=== PATIENT | male | born 1950 | race Caucasian/White ===

== ENCOUNTER → 2016-08-23 | Outpatient (CLI) | payer OTHER | LOC: BMCIMAGING 10:11 | PROVIDERS: ATTEND Internal Medicine | DX: M79.605 Pain in left leg (principal) ==

== ENCOUNTER 2017-04-26 10:01 | Emergency (ER) | payer OTHER ==
[2017-04-26 10:08] VITALS: TEMP 97.9
--- NOTE | 2017-04-26 10:18 | CPEKG ---
Heart Rate: 65 RR Interval: 923 P-R Interval: 200 QRSD Interval: 82 QT Interval: 416 QTC Interval: 433 P Center: 57 QRS Center: -22 T Wave Center: 39 EKG Severity - ABNORMAL ECG - EKG Impression: SINUS RHYTHM Electronically Signed By: Ceferino Santos 26-Apr-2017 10:38:15
[2017-04-26] MEDS ORDERED: NS 1,000 ML IV ONE (10:26)
[2017-04-26 10:33] LABS: % IMMATURE GRANULYOCYTES 0.2 % (0.0-1.1); ABSOLUTE IMMATURE GRANULOCYTES 0.01 10^3/uL (0.00-0.10); ADD DIFF? NO; ADD MORPH? NO; ADD SCAN? NO; ATYPICAL LYMPHOCYTE FLAG 0 (0-99); FRAGMENT RBC FLAG 0 (0-99); HEMATOCRIT 46.8 % (40.0-51.0); HEMOGLOBIN 16.3 g/dL (13.7-17.5); LEFT SHIFT FLG 0 (0-99); LIPEMIA HEMOLYSIS FLAG 90 (0-99); MEAN CELL HEMOGLOBIN 32.9 pg (27.9-34.1); MEAN CELL HEMOGLOBIN CONCENTR. 34.8 g/dL (32.4-36.7); MEAN CELL VOLUME 94.5 fL (81.5-99.8); PLATELET CLUMPS FLAG 0 (0-99); PLATELET COUNT 235 10^3/uL (150-400); RED BLOOD CELL COUNT 4.95 10^6/uL (4.40-6.38); RED CELL DISTRIBUTION WIDTH 12.1 % (11.5-15.2)
--- NOTE | 2017-04-26 10:35 | EDPHY ---
General - History Smoking Status: Never smoked Narrative: CHIEF COMPLAINT: Right flank pain HISTORY OF PRESENT ILLNESS: Patient complains of 2 days history of right-sided flank pain. Gradual onset. Constant duration. [id number] symptoms. Worse with twisting and movement of the arm. No worse with inspiration. No chest pain. No shortness of breath. No cough. No fall, trauma or injury. No changes in bowel movements or urination. Some epigastric discomfort recently, acute on chronic. Also has some worsening soft tissue back pain and occasional headache. No neck pain or stiffness. No history of venous thrombolic event. No recent travel, trauma or surgery. No extremity erythema edema or pain. No midline back pain. No other associated complaints or modifying factors. REVIEW OF SYSTEMS: Ten systems reviewed and are negative unless otherwise noted in the HPI PCP: Dr. Bárbara Pizano SPECIALISTS: None PAST MEDICAL HISTORY: Chronic back pain, paroxysmal A flutter PAST SURGICAL HISTORY: Right shoulder surgery, knee surgery, appendectomy SOCIAL HISTORY: Nonsmoker. Occasional alcohol. No drug use. 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 No crepitus, step-off or deformity. Painless range of motion all planes. Midline trachea. Respiratory: Lungs are clear to auscultation. No wheeze, rhonchi or crackles Cardiovascular: Regular rate and rhythm no murmur Gastrointestinal: Abdomen is soft and nondistended. No epigastric tenderness. No tympany. No rigidity. No guarding. Right CVA tenderness that is mild to moderate. Back: No midline tenderness. There is soft tissue tenderness of the lumbar musculature. No crepitus, step-off or deformity. Neurological: A&O, nonfocal, strength is symmetric in all 4 limbs. Skin: Warm and dry, no rash no petechiae or purpura Extremities: Nontender, no pedal edema. Symmetric range of motion Psychiatric: Mood and affect normal DIFFERENTIAL DIAGNOSES: Including but not limited to renal colic, nephrolithiasis, biliary colic, ureteral stone, musculoskeletal injury, PE, ACS MDM: 10:27 a.m. Right-sided flank pain that suggest renal colic versus gallbladder etiology by history examination. Low concern for cardiac involvement. No pleuritic pain. EKG unremarkable. Vital signs stable. Laboratory studies and chest x-ray were ordered. Urinalysis ordered. He is in no acute distress. He does not require any IV pain medication at this time. 11:00 a.m. Patient re-evaluated. Still resting comfortably. Still complains of a dull pain in the right flank. CBC is unremarkable. Chemistries unremarkable. Urinalysis is not yet obtained. 11:[address] Santos has evaluated the patient. CT scan of the abdomen pelvis without contrast has been ordered. 11:[address] scan as read by me, without the aid of the radiologist, does reveal stone in the right kidney as well as in the right ureter. Official interpretation pending. Patient is providing a urine sample at this time 12:05 p.m. Patient re-evaluated. I discussed the CT scan findings with the patient. He is feeling well at this time. Mild pain. Urinalysis is pending. We discussed discharge home with pain medication, nausea medication and follow up with Urology and primary care physician. I will await the urinalysis results prior to disposition. He is comfortable this plan. He is in no acute distress. 12:20 p.m. Urinalysis reveals only a few red blood cells. No evidence of infection. I have informed him of this. At this point he will be discharged home in stable condition. Follow up with primary care physician and Neurology. ED precautions discussed. (Luc Maxwell) INDEPENDENT PHYSICIAN DOCUMENTATION I evaluated and participated in the management of the patient. I also evaluated the patient independently. My co-signature indicates that I have reviewed this chart and I agree with the findings and plan of care as documented. My personal H&P findings include: The patient presents the ED with complaints of acute right flank pain which radiates to the right lower quadrant and began several hours prior to arrival. The patient had nausea without vomiting. The patient states his pain is worsened with movement. He is unable to find a position of comfort. Physical exam General Appearance: Alert, mild discomfort secondary to pain Eyes: Pupils equal and round no pallor or injection ENT, Mouth: Mucous membranes moist Respiratory: There are no retractions, lungs are clear to auscultation Cardiovascular: Regular rate and rhythm Gastrointestinal: Tenderness to palpation right lower quadrant, minimal right CVA tenderness Neurological: A&O, normal motor function, normal sensory exam, normal cranial nerves Skin: Warm and dry, no rashes Musculoskeletal: Neck is supple nontender Extremities: symmetrical, full range of motion ED course I did perform a bedside ultrasound on the patient which demonstrates no evidence of significant hydronephrosis. Given the diagnostic uncertainty of the patient's presentation today CT scan of the abdomen pelvis was ordered. CT scan demonstrates nephrolithiasis without ureterolithiasis. The patient's laboratory studies are reviewed. At this point time I feel the etiology of his pain is likely musculoskeletal. I do feel it is reasonable to have him do anti- inflammatories for the next day and return to the ED for recheck in 8-12 hours for any ongoing symptoms. The patient is comfortable with this plan and disposition. He will follow up with his primary care provider as needed. (Ceferino Santos) - Diagnostics EKG Interpretation: EKG: Complete interpretation has been separately recorded in the [employer] archive. Summary impression: Sinus rhythm, rate 65, no ischemic changes noted (Ceferino Santos) Imaging Results: Imaging Impressions Chest X-Ray 04/26/17 10:26 Impression: Nothing acute identified. Abdomen/Pelvis CT 04/26/17 11:10 Impression: 1. No source for right sided pain identified. If there is concern for noncalcified gallstone disease, then consider gallbladder sonogram. 2. Nonobstructive bilateral nephrolithiasis. Results called and discussed with Ceferino Santos, at 04/26/2017 11:56 Attention: This CT examination is specifically designed to evaluate patients who are clinically suspected of having acute obstructive uropathy. This examination does not use radiographic contrast, and as such, provides only a limited evaluation of the abdomen, pelvis and retroperitoneum. If there is further clinical suspicion for pathological conditions other than obstructive uropathy, a complete CT evaluation of the abdomen and pelvis utilizing intravenous, oral, and rectal contrast should be considered. General information for patients regarding this examination can be found at [email or web address]. If you have questions or comments about this report, please contact me at [phone] (hospital) or [phone] (cell). - Objective Vital Signs: Initial Vital Signs Temperature (C) 36.6 C 04/26/17 10:05 Heart Rate 73 04/26/17 10:05 Respiratory Rate 18 04/26/17 10:05 Blood Pressure 144/89 H 04/26/17 10:05 O2 Sat (%) 97 04/26/17 10:05 O2 Delivery Mode Room Air Allergies/Adverse Reactions: DOGS Allergy (Mild, Uncoded 04/26/17 10:04) STUFFY NOSE Home Medications: Medication Instructions Recorded LAMOTRIGINE 04/26/17 LORAZEPAM 04/26/17 Ondansetron Odt [Zofran Odt 4 mg 4 mg PO Q6 PRN #12 tab 04/26/17 (*)] oxyCODONE HCL/ACETAMINOPHEN 1 each PO Q4-6PRN PRN #19 tablet 04/26/17 [Percocet 5-325 mg Tablet] Laboratory Results: Laboratory Results 04/26/17 10:20 04/26/17 10:20 04/26/17 04/26/17 04/26/17 11:40 10:20 10:20 WBC RBC Hgb Hct MCV MCH MCHC RDW Plt Count MPV Neut % (Auto) Lymph % (Auto) [place] % (Auto) Eos % (Auto) Baso % (Auto) Nucleat RBC Rel Count Absolute Neuts (auto) Absolute Lymphs (auto) Absolute Monos (auto) Absolute Eos (auto) Absolute Basos (auto) Absolute Nucleated RBC Immature Gran % Immature Gran # PT 13.2 SEC SEC (12.0-15.0) INR 1.01 (0.83-1.16) APTT 30.9 SEC SEC (23.0-38.0) Sodium 145 mEq/L H mEq/L (134-144) Potassium 4.2 mEq/L mEq/L (3.5-5.2) Chloride 108 mEq/L mEq/L (97-110) Carbon Dioxide 23 mEq/l mEq/l (22-31) Anion Gap 14 mEq/L mEq/L (8-16) BUN 15 mg/dL mg/dL (7-23) Creatinine 1.0 mg/dL mg/dL (0.7-1.3) Estimated GFR > 60 Glucose 154 mg/dL H mg/dL (70-100) Calcium 9.1 mg/dL mg/dL (8.5-10.4) Total Bilirubin 0.6 mg/dL mg/dL (0.1-1.4) Conjugated Bilirubin 0.0 mg/dL mg/dL (0.0-0.5) Unconjugated Bilirubin 0.6 mg/dL mg/dL (0.0-1.1) AST 25 IU/L IU/L (17-59) ALT 41 IU/L IU/L (21-72) Alkaline Phosphatase 59 IU/L IU/L (38-126) Troponin I < 0.012 ng/mL ng/mL (0.000-0.034) Total Protein 6.7 g/dL g/dL (6.3-8.2) Albumin 4.4 g/dL g/dL (3.5-5.0) Lipase 66 IU/L IU/L (23-300) Urine Color YELLOW Urine Appearance CLEAR Urine pH 6.0 (5.0-7.5) Ur Specific [place] 1.023 (1.002-1.030) Urine Protein NEGATIVE (NEGATIVE) Urine Ketones NEGATIVE (NEGATIVE) Urine Blood NEGATIVE (NEGATIVE) Urine Nitrate NEGATIVE (NEGATIVE) Urine Bilirubin NEGATIVE (NEGATIVE) Urine Urobilinogen NEGATIVE EU EU (0.2-1.0) Ur Leukocyte Esterase NEGATIVE (NEGATIVE) Urine RBC 5-10 /hpf H /hpf (0-3) Urine WBC 1-3 /hpf /hpf (0-3) Ur Epithelial Cells NONE SEEN /lpf /lpf (NONE-1+) Urine Mucus TRACE /lpf /lpf (NONE-1+) Urine Glucose NEGATIVE (NEGATIVE) 04/26/17 10:20 WBC 5.11 10^3/uL 10^3/uL (3.80-9.50) RBC 4.95 10^6/uL 10^6/uL (4.40-6.38) Hgb 16.3 g/dL g/dL (13.7-17.5) Hct 46.8 % % (40.0-51.0) MCV 94.5 fL fL (81.5-99.8) MCH 32.9 pg pg (27.9-34.1) MCHC 34.8 g/dL g/dL (32.4-36.7) RDW 12.1 % % (11.5-15.2) Plt Count 235 10^3/uL 10^3/uL (150-400) MPV 10.0 fL fL (8.7-11.7) Neut % (Auto) 60.4 % % (39.3-74.2) Lymph % (Auto) 31.1 % % (15.0-45.0) Hinds % (Auto) 6.1 % % (4.5-13.0) Eos % (Auto) 1.0 % % (0.6-7.6) Baso % (Auto) 1.2 % % (0.3-1.7) Nucleat RBC Rel Count 0.0 % % (0.0-0.2) Absolute Neuts (auto) 3.09 10^3/uL 10^3/uL (1.70-6.50) Absolute Lymphs (auto) 1.59 10^3/uL 10^3/uL (1.00-3.00) Absolute Monos (auto) 0.31 10^3/uL 10^3/uL (0.30-0.80) Absolute Eos (auto) 0.05 10^3/uL 10^3/uL (0.03-0.40) Absolute Basos (auto) 0.06 10^3/uL 10^3/uL (0.02-0.10) Absolute Nucleated RBC 0.00 10^3/uL 10^3/uL (0-0.01) Immature Gran % 0.2 % % (0.0-1.1) Immature Gran # 0.01 10^3/uL 10^3/uL (0.00-0.10) PT INR APTT Sodium Potassium Chloride Carbon Dioxide Anion Gap BUN Creatinine Estimated GFR Glucose Calcium Total Bilirubin Conjugated Bilirubin Unconjugated Bilirubin AST ALT Alkaline Phosphatase Troponin I Total Protein Albumin Lipase Urine Color Urine Appearance Urine pH Ur Specific [place] Urine Protein Urine Ketones Urine Blood Urine Nitrate Urine Bilirubin Urine Urobilinogen Ur Leukocyte Esterase Urine RBC Urine WBC Ur Epithelial Cells Urine Mucus Urine Glucose Medications Given: Discontinued Medications Sodium Chloride (Ns) 1,000 mls @ 0 mls/hr IV EDNOW ONE; Wide Open PRN Reason: Protocol Stop: 04/26/17 10:27 Last Admin: 04/26/17 10:43 Dose: 1,000 mls Ketorolac Tromethamine (Toradol) 30 mg IVP EDNOW ONE Stop: 04/26/17 12:06 Last Admin: 04/26/17 12:13 Dose: 30 mg Departure - Departure Disposition: Home, Routine, Self-Care Clinical Impression: Right nephrolithiasis, Right flank pain Condition: Good Instructions: Kidney Stones (ED), Renal Colic (ED), How to Strain Your Urine ( ED), Musculoskeletal Pain (ED) Additional Instructions: 1. Medications as prescribed as needed 2. Increase fluid intake 3. Contact primary care physician Friday for follow-up 4. Contact the on-call urologist on Friday for outpatient follow-up. Information provided. 5. ED precautions discussed Referrals: Bárbara Pizano MD [Primary Care Provider] - As per Instructions Bassam Diaz MD [Medical Doctor] - As per Instructions Prescriptions: Ondansetron Odt [Zofran Odt 4 mg (*)] 4 mg PO Q6 PRN #12 tab PRN Reason: Nausea/Vomiting, Use 1st oxyCODONE HCL/ACETAMINOPHEN [Percocet 5-325 mg Tablet] 1 each PO Q4-6PRN PRN # 19 tablet PRN Reason: Pain, Breakthrough
[2017-04-26 10:47] LABS: ALANINE AMINOTRANSFERASE 41 IU/L (21-72); ALBUMIN 4.4 g/dL (3.5-5.0); ALKALINE PHOSPHATASE 59 IU/L (38-126); ANION GAP 14 mEq/L (8-16); ASPARTATE AMINOTRANSFERASE 25 IU/L (17-59); BILIRUBIN,TOTAL 0.6 mg/dL (0.1-1.4); BILIRUBIN-UNCONJUGATED 0.6 mg/dL (0.0-1.1); CALCIUM 9.1 mg/dL (8.5-10.4); CARBON DIOXIDE 23 mEq/l (22-31); CHLORIDE 108 mEq/L (97-110); GLOMERULAR FILTRATION RATE > 60; GLUCOSE 154 mg/dL (70-100); POTASSIUM 4.2 mEq/L (3.5-5.2); SODIUM 145 mEq/L (134-144); TOTAL PROTEIN 6.7 g/dL (6.3-8.2)
[2017-04-26 10:48] LABS: INR 1.01 (0.83-1.16); PROTIME(PATIENT) 13.2 SEC (12.0-15.0)
[2017-04-26 10:49] LABS: APTT 30.9 SEC (23.0-38.0)
[2017-04-26 10:59] LABS: TROPONIN I < 0.012 ng/mL (0.000-0.034)
[2017-04-26 11:59] VITALS: BP 146/86; PULSE 59; RESP 16; O2SAT 94
[2017-04-26 12:01] LABS: COLOR YELLOW; LEUKOCYTE ESTERASE,URINE NEGATIVE (NEGATIVE); NITRITE,URINE NEGATIVE (NEGATIVE)
[2017-04-26] MEDS ORDERED: KETOROLAC 30 MG/1 ML SDV IVP ONE (12:05)
[2017-04-26 12:15] LABS: MUCUS TRACE /lpf (NONE-1+)
== END 2017-04-26 12:28 | disposition home or self-care (01) ==
DX: N20.0 Calculus of kidney (principal); E86.9 Volume depletion, unspecified
CPT/HCPCS: 96374; J1885

== ENCOUNTER 2018-04-13 18:41 | Emergency (ER) | payer OTHER ==
[2018-04-13] MEDS ORDERED: NS 1,000 ML IV ONE (19:08)
--- NOTE | 2018-04-13 19:11 | EDPHY ---
HPI/HX/ROS/PE/MDM Narrative: CHIEF COMPLAINT: Palpitations HPI: The patient is a 67-year-old male with no known cardiac history. He complains of approximately 2-3 weeks of intermittent palpitations which she describes as a fast irregular beating. In between episodes, he denies any chest pain or shortness of breath. He presents tonight because these episodes have been increasing in frequency and severity and a particularly bad tonight. The patient saw a PA at [facility] within the last week who was unable to find any rhythm problem but scheduled this patient for a stress test. He denies any current chest pain or shortness of breath. REVIEW OF SYSTEMS: Aside from elements discussed in the HPI, a comprehensive 10-point review of systems was reviewed and is negative. PMH: History of previous irregular heart beats with a negative workup. No history of coronary artery disease. SOCIAL HISTORY: Denies alcohol or drug abuse. PHYSICAL EXAM: General:Patient is alert, in no acute distress. ENT:Eyes are normal to inspection. ENT inspection normal. Neck: Normal inspection. Full range of motion. Respiratory:No respiratory distress. Breath sounds normal bilaterally. Cardiovascular: Regular rate and rhythm. Strong peripheral pulses. Normal cap refill. Abdomen:The abdomen is nontender to palpation. There are no peritoneal signs. There are normal bowel sounds. Back: Normal to inspection. No tenderness to palpation. Skin: Normal color. No rash. Warm and dry. Extremities: Normal appearance. Full range of motion. Neuro: Oriented x3. Normal motor function. Normal sensory function. ED Course: EKG on arrival to the ER shows normal sinus rhythm without ST elevation or interval abnormalities. MDM: This patient was kept on surveillance monitor during his entire ER stay. Review of monitor strip indicates multiple episodes of single atrial premature contraction. There is no evidence of ventricular tachycardia, atrial fibrillation, ventricular premature contractions a, missed beats or other arrhythmia. I showed these tracings to the patient and explained our findings. I explained that if the patient was having a different rhythm prior to his arrival, we would be have no way to investigate that. His labs are normal and there is no sign of acute coronary syndrome or pulmonary embolus. I think he is safe for further outpatient workup and likely Holter monitor. - Data Points Laboratory Results: Laboratory Results 04/13/18 19:11 04/13/18 19:11 04/13/18 04/13/18 04/13/18 19:16 19:11 19:11 WBC 8.53 10^3/uL 10^3/uL (3.80-9.50) RBC 5.11 10^6/uL 10^6/uL (4.40-6.38) Hgb 16.3 g/dL g/dL (13.7-17.5) Hct 48.1 % % (40.0-51.0) MCV 94.1 fL fL (81.5-99.8) MCH 31.9 pg pg (27.9-34.1) MCHC 33.9 g/dL g/dL (32.4-36.7) RDW 12.0 % % (11.5-15.2) Plt Count 272 10^3/uL 10^3/uL (150-400) MPV 9.9 fL fL (8.7-11.7) Neut % (Auto) 64.2 % % (39.3-74.2) Lymph % (Auto) 27.5 % % (15.0-45.0) [place] % (Auto) 6.2 % % (4.5-13.0) Eos % (Auto) 1.2 % % (0.6-7.6) Baso % (Auto) 0.7 % % (0.3-1.7) Nucleat RBC Rel Count 0.0 % % (0.0-0.2) Absolute Neuts (auto) 5.47 10^3/uL 10^3/uL (1.70-6.50) Absolute Lymphs (auto) 2.35 10^3/uL 10^3/uL (1.00-3.00) Absolute Monos (auto) 0.53 10^3/uL 10^3/uL (0.30-0.80) Absolute Eos (auto) 0.10 10^3/uL 10^3/uL (0.03-0.40) Absolute Basos (auto) 0.06 10^3/uL 10^3/uL (0.02-0.10) Absolute Nucleated RBC 0.00 10^3/uL 10^3/uL (0-0.01) Immature Gran % 0.2 % % (0.0-1.1) Immature Gran # 0.02 10^3/uL 10^3/uL (0.00-0.10) Sodium 141 mEq/L mEq/L (135-145) Potassium 4.2 mEq/L mEq/L (3.3-5.0) Chloride 104 mEq/L mEq/L (97-110) Carbon Dioxide 25 mEq/l mEq/l (22-31) Anion Gap 12 mEq/L mEq/L (6-14) BUN 18 mg/dL mg/dL (7-23) Creatinine 1.0 mg/dL mg/dL (0.7-1.3) Estimated GFR > 60 Glucose 102 mg/dL H mg/dL (70-100) Calcium 9.8 mg/dL mg/dL (8.5-10.4) POC Troponin I 0.00 ng/mL ng/mL (0.00-0.08) Medications Given: Discontinued Medications Sodium Chloride (Ns) 1,000 mls @ 0 mls/hr IV EDNOW ONE; Wide Open PRN Reason: Protocol Stop: 04/13/18 19:09 Last Admin: 04/13/18 19:41 Dose: 1,000 mls Point of Care Test Results: Chemistry 04/13/18 19:16 POC Troponin I 0.00 ng/mL ng/mL (0.00-0.08) General Time Seen by Provider: 04/13/18 18:53 Initial Vital Signs: Initial Vital Signs Temperature (C) 37.1 C 04/13/18 18:44 Heart Rate 69 04/13/18 18:44 Respiratory Rate 17 04/13/18 18:44 Blood Pressure 150/108 H 04/13/18 18:44 O2 Sat (%) 96 04/13/18 18:44 O2 Delivery Mode Room Air Allergies/Adverse Reactions: DOGS Allergy (Mild, Uncoded 04/13/18 18:43) STUFFY NOSE Home Medications: Medication Instructions Recorded LAMOTRIGINE 04/26/17 LORAZEPAM 04/26/17 Departure - Departure Disposition: Home, Routine, Self-Care Clinical Impression: Palpitations, Atrial premature contractions Condition: Good Instructions: Premature Atrial Contractions (ED) Additional Instructions: Follow-up with your graphic designer within the next week for re-evaluation. Return to the emergency department for chest pain, shortness of breath, passing out, consistent abnormal heartbeats. Referrals: Bárbara Pizano MD [Primary Care Provider] - As per Instructions
[2018-04-13 19:24] LABS: PLATELET COUNT 272 10^3/uL (150-400)
[2018-04-13 20:25] VITALS: BP 160/95
--- NOTE | 2018-04-13 21:27 | CPEKG ---
Test Reason : OPEN Blood Pressure : / mmHG Vent. Rate : 065 BPM Atrial Rate : 064 BPM P-R Int : 203 ms QRS Dur : 086 ms QT Int : 408 ms P-R-T Axes : 030 -27 043 degrees QTc Int : 425 ms Sinus rhythm Left ventricular hypertrophy Confirmed by Chandrakant Baker ([id number]) on 04/13/2018 9:26:51 PM Referred By: Confirmed By:Chandrakant Baker
== END 2018-04-13 20:39 | disposition home or self-care (01) ==
DX: I49.1 Atrial premature depolarization (principal); E86.9 Volume depletion, unspecified
CPT/HCPCS: 84484-PO

== ENCOUNTER 2018-04-23 11:10 | Emergency (ER) | payer OTHER ==
[2018-04-23 11:53] LABS: PLATELET COUNT 285 10^3/uL (150-400)
[2018-04-23] MEDS ORDERED: IBUPROFEN 600 MG TAB PO ONE (13:14)
[2018-04-23] MEDS ORDERED: LIDOCAINE 1% 100 MG in NS 100 ML IV ONE (13:14)
--- NOTE | 2018-04-23 13:20 | EDPHY ---
H & P Time Seen by Provider: 04/23/18 11:55 HPI/ROS: CHIEF COMPLAINT: Right-sided pain in the flank HISTORY OF PRESENT ILLNESS: History of kidney stones, developed symptoms 3 hr prior to arrival. Right flank and radiates to his right testicle. Associated with some anterior lower abdominal pain. He has had some anterior lower abdominal pain for about the 5-6 days previously, no vomiting or diarrhea. No urinary symptoms. He has a little bit of urinary hesitancy always but no change. Symptoms moderate to severe, better after he took an OxyContin that he had at home from previous back pain. REVIEW OF SYSTEMS: Eye: no change in vision ENT: no sore throat Cardiac: no chest pain or syncope Pulmonary: no cough or SOB Abdomen: HPI Musculoskeletal: HPI Skin: no rash Neuro: no headache Constitutional: no fever : HPI A comprehensive 10 point review of systems is otherwise negative aside from elements mentioned in the history of present illness. PAST MEDICAL HISTORY: Previous dysrhythmia, kidney stone Social history: Nonsmoker General Appearance: Alert and conversant, cooperative. Eyes: No scleral icterus. ENT, Mouth: Normal mucous membranes. Respiratory: Normal respiratory effort, breath sounds equal, lungs are clear to auscultation. Cardiovascular: Regular rate and rhythm. Gastrointestinal: Abdomen is soft and non tender. No pulsatile mass. Normal male . Neurological: Alert, face symmetric, normal motor and sensory in extremities. Skin: Warm and dry, no rashes. Musculoskeletal: No peripheral edema. Psychiatric: Not agitated. Emergency Department course/MDM: 1315: Results discussed with the patient, feels better after 6 mg IV morphine. Lidocaine 100 and ibuprofen 600, will wait to see if he has adequate pain control. Does not have severe nausea and vomiting, has normal balance at baseline, Flomax discussed and consented. CT results reviewed with the patient personally on the computer screen. His rectal exam is Hemoccult negative, more likely to be due to the Pepto-Bismol and not an acute ulcer or upper GI bleed. 1507: re examined. Patient is comfortable, says he almost is pain-free now. He wants to go home which I think is reasonable. He is warned he may have recurrent pain while at home. Urology referral. Smoking Status: Never smoked Constitutional: Initial Vital Signs Temperature (C) 36.5 C 04/23/18 11:17 Heart Rate 54 L 04/23/18 11:17 Respiratory Rate 18 04/23/18 11:17 Blood Pressure 168/91 H 04/23/18 11:17 O2 Sat (%) 97 04/23/18 11:17 O2 Delivery Mode Room Air Allergies/Adverse Reactions: DOGS Allergy (Mild, Uncoded 04/13/18 18:43) STUFFY NOSE Home Medications: Medication Instructions Recorded LAMOTRIGINE 04/26/17 LORAZEPAM 04/26/17 Tamsulosin HCl [Flomax] 0.4 mg PO DAILY8 #10 cap 04/23/18 oxyCODONE/APAP 5/325 [Percocet] 1 tab PO Q4-6PRN PRN #11 tab 04/23/18 Medical Decision Making - Diagnostics Imaging Results: Imaging Impressions Abdomen/Pelvis CT 04/23/18 12:12 Impression: 5 mm calculus in the mid right ureter with mild to moderate hydronephrosis and hydroureter. Results called and discussed with Dr. Tino Boone on 04/23/2018, 13:01. Attention: This CT examination is specifically designed to evaluate patients who are clinically suspected of having acute obstructive uropathy. This examination does not use radiographic contrast, and as such, provides only a limited evaluation of the abdomen, pelvis and retroperitoneum. If there is further clinical suspicion for pathological conditions other than obstructive uropathy, a complete CT evaluation of the abdomen and pelvis utilizing intravenous, oral, and rectal contrast should be considered. Imaging: Discussed imaging studies w/ call worker Radiologist, I viewed and interpreted images myself Differential Diagnosis: Differential considered including but not limited to renal colic, UTI, abdominal aortic aneurysm, appendicitis, gallbladder disease. - Data Points Laboratory Results: Laboratory Results 04/23/18 11:35 04/23/18 04/23/18 04/23/18 12:20 12:13 11:46 WBC RBC Hgb POC Hgb 16.7 gm/dL gm/dL (13.7-17.5) Hct POC Hct 49 % % (40-51) MCV MCH MCHC RDW Plt Count MPV Neut % (Auto) Lymph % (Auto) [place] % (Auto) Eos % (Auto) Baso % (Auto) Nucleat RBC Rel Count Absolute Neuts (auto) Absolute Lymphs (auto) Absolute Monos (auto) Absolute Eos (auto) Absolute Basos (auto) Absolute Nucleated RBC Immature Gran % Immature Gran # POC Sodium 143 mEq/L mEq/L (135-145) POC Potassium 4.1 mEq/L mEq/L (3.3-5.0) POC Chloride 106 mEq/L mEq/L (97-110) POC BUN 17 mg/dL mg/dL (7-23) POC Creatinine 1.1 mg/dL mg/dL (0.7-1.3) POC Glucose 101 mg/dL H mg/dL (70-100) Urine Color YELLOW Urine Appearance CLEAR Urine pH 5.0 (5.0-7.5) Ur Specific [place] 1.019 (1.002-1.030) Urine Protein NEGATIVE (NEGATIVE) Urine Ketones NEGATIVE (NEGATIVE) Urine Blood 2+ H (NEGATIVE) Urine Nitrate NEGATIVE (NEGATIVE) Urine Bilirubin NEGATIVE (NEGATIVE) Urine Urobilinogen NEGATIVE EU EU (0.2-1.0) Ur Leukocyte Esterase NEGATIVE (NEGATIVE) Urine RBC 25-50 /hpf H /hpf (0-3) Urine WBC 3-5 /hpf H /hpf (0-3) Ur Epithelial Cells NONE SEEN /lpf /lpf (NONE-1+) Urine Mucus TRACE /lpf /lpf (NONE-1+) Urine Glucose NEGATIVE (NEGATIVE) Stool Occult Bld Scrn NEGATIVE (NEGATIVE) 04/23/18 11:35 WBC 10.04 10^3/uL H 10^3/uL (3.80-9.50) RBC 5.11 10^6/uL 10^6/uL (4.40-6.38) Hgb 16.2 g/dL g/dL (13.7-17.5) POC Hgb Hct 48.5 % % (40.0-51.0) POC Hct MCV 94.9 fL fL (81.5-99.8) MCH 31.7 pg pg (27.9-34.1) MCHC 33.4 g/dL g/dL (32.4-36.7) RDW 12.1 % % (11.5-15.2) Plt Count 285 10^3/uL 10^3/uL (150-400) MPV 9.9 fL fL (8.7-11.7) Neut % (Auto) 68.2 % % (39.3-74.2) Lymph % (Auto) 24.8 % % (15.0-45.0) [place] % (Auto) 5.5 % % (4.5-13.0) Eos % (Auto) 0.4 % L % (0.6-7.6) Baso % (Auto) 0.8 % % (0.3-1.7) Nucleat RBC Rel Count 0.0 % % (0.0-0.2) Absolute Neuts (auto) 6.85 10^3/uL H 10^3/uL (1.70-6.50) Absolute Lymphs (auto) 2.49 10^3/uL 10^3/uL (1.00-3.00) Absolute Monos (auto) 0.55 10^3/uL 10^3/uL (0.30-0.80) Absolute Eos (auto) 0.04 10^3/uL 10^3/uL (0.03-0.40) Absolute Basos (auto) 0.08 10^3/uL 10^3/uL (0.02-0.10) Absolute Nucleated RBC 0.00 10^3/uL 10^3/uL (0-0.01) Immature Gran % 0.3 % % (0.0-1.1) Immature Gran # 0.03 10^3/uL 10^3/uL (0.00-0.10) POC Sodium POC Potassium POC Chloride POC BUN POC Creatinine POC Glucose Urine Color Urine Appearance Urine pH Ur Specific [place] Urine Protein Urine Ketones Urine Blood Urine Nitrate Urine Bilirubin Urine Urobilinogen Ur Leukocyte Esterase Urine RBC Urine WBC Ur Epithelial Cells Urine Mucus Urine Glucose Stool Occult Bld Scrn Medications Given: Discontinued Medications Lidocaine HCl 100 mg/ Sodium (Chloride) 110 mls @ 600 mls/hr IV EDNOW ONE Stop: 04/23/18 13:24 Last Admin: 04/23/18 13:21 Dose: 110 mls Ibuprofen (Motrin) 600 mg PO EDNOW ONE Stop: 04/23/18 13:15 Last Admin: 04/23/18 13:21 Dose: 600 mg Morphine Sulfate (Morphine) 6 mg IVP EDNOW ONE Stop: 04/23/18 12:30 Last Admin: 04/23/18 12:33 Dose: 6 mg Point of Care Test Results: Chemistry 04/23/18 11:46 POC Sodium 143 mEq/L mEq/L (135-145) POC Potassium 4.1 mEq/L mEq/L (3.3-5.0) POC Chloride 106 mEq/L mEq/L (97-110) POC BUN 17 mg/dL mg/dL (7-23) POC Creatinine 1.1 mg/dL mg/dL (0.7-1.3) POC Glucose 101 mg/dL H mg/dL (70-100) ISTAT H&H 04/23/18 11:46 POC Hgb 16.7 gm/dL gm/dL (13.7-17.5) POC Hct 49 % % (40-51) Departure - Departure Disposition: Home, Routine, Self-Care Clinical Impression: Renal colic on right side Condition: Good Instructions: Renal Colic (ED) Additional Instructions: Please follow-up with [facility] next week. Drink plenty of fluids. Referrals: Bárbara Pizano MD [Primary Care Provider] - As per Instructions Rkeha Merino MD [Medical Doctor] - As per Instructions (next week in the office) Prescriptions: oxyCODONE/APAP 5/325 [Percocet] 1 tab PO Q4-6PRN PRN #11 tab PRN Reason: Pain Tamsulosin HCl [Flomax] 0.4 mg PO DAILY8 #10 cap
[2018-04-23 15:28] VITALS: BP 129/85
== END 2018-04-23 15:28 | disposition home or self-care (01) ==
DX: N23 Unspecified renal colic (principal); N20.1 Calculus of ureter; N13.30 Unspecified hydronephrosis
CPT/HCPCS: 82435-PO; 82565-PO; 82947-PO; 84132-PO; 84295-PO; 84520-PO; 85014-PO; 96365; J2270

== ENCOUNTER → 2018-05-07 | Outpatient (CLI) | payer OTHER | LOC: FIMAGING 07:52 | PROVIDERS: ATTEND Urology | DX: N20.1 Calculus of ureter (principal) | CPT/HCPCS: 82365-90 ==

== ENCOUNTER → 2018-06-24 | Outpatient (CLI) | payer OTHER | LOC: FIMAGING 14:10 | PROVIDERS: ATTEND Urology | DX: Z09 Encounter for follow-up examination after completed treatment for conditions other than malignant neoplasm (principal); Z96.0 Presence of urogenital implants ==

== ENCOUNTER 2018-06-27 22:26 | Emergency (ER) | payer OTHER ==
[2018-06-27] MEDS ORDERED: LIDOCAINE 4%/MENTHOL 1% PATCH TD ONE (22:49)
[2018-06-27] MEDS ORDERED: KETOROLAC 15 MG/1 ML SDV IVP ONE (23:05)
--- NOTE | 2018-06-27 23:09 | EDPHY ---
General Time Seen by Provider: 06/27/18 22:30 Narrative: CLINICAL IMPRESSION: Acute on chronic lumbar back pain with radiculopathy ASSESSMENT/PLAN: Patient is a 67-year-old male with a history of PVCs, chronic lumbar back pain with radiculopathy and kidney stones who presents with a complaint of low back pain after a long day of skiing yesterday. Patient is afebrile, he is uncomfortable appearing however not toxic-appearing. HSNE intact with no significant red flags. Urinalysis revealed no evidence of infection or blood. Patient's ultrasound from several days prior was reviewed, no evidence of stone or hydronephrosis. Physical examination today is consistent acute exacerbation of chronic lumbar back pain with radiculopathy. He had no saddle paresthesias, lower extremity numbness, tingling, major motor weakness, urinary retention or bowel/bladder incontinence. No indication for emergent MRI. There were no clinical findings to suggest vertebral osteomyelitis, acute fracture, cauda equina syndrome, epidural abscess/hematoma, epidural compression syndrome, renal colic, AAA, dissection, pyelonephritis, meningitis, malignancy, transverse myelitis, herpes zoster, or additional emergent intraabdominal infectious/obstructive process. Patient was given fentanyl by EMS prior to arrival, additionally he was given Toradol and a lidoderm patch was placed while in the ED with improvement of his pain. On repeat examination prior to discharge the patient was able to ambulate independently and without difficulty, his neurological exam remained grossly normal with no focal deficit. Patient is well established with his primary care provider and will call to schedule a follow-up appointment for repeat examination next week. He understands that he may need additional imaging and even possible physical therapy. Strict return precautions discussed - he will return for increased or unmanageable pain, new injury, new midline back pain, numbness, tingling, weakness of legs, loss of bowel or bladder control, saddle paresthesia, urinary retention, loss of bowel or bladder control , difficulty walking or for any other new, worsening or worrisome symptoms. Patient verbalizes understanding and she is in agreement with plan. DIFFERENTIAL DX: Back pain including but not limited to muscular pain, herniated disc, spine fracture, intra-abdominal causes and urinary tract infection. ED COURSE: 2300: Case discussed with Dr. Meng CHIEF COMPLAINT: Lumbar back pain with radiation into right leg HPI: Patient is a 67-year-old male with a significant history of sciatica and recent kidney stones who presents to the emergency department with right lumbar back pain with radiation into his right leg. Patient reports he was skiing yesterday , felt stiff after he skied. Woke up this morning with feeling even more stiff in his lower back. Patient bent over and had a sudden onset of sharp midline pain with radiation down his right leg. Patient took Aleve, on oxycodone and waited several hours. He took an additional oxycodone and ultimately called 911 secondary to the amount of pain that he was having. Patient does report similar episodes in the past, has required physical therapy for lumbar back pain. He denies any recent spinal procedures, fever, chest pain, shortness of breath, flank pain or urinary symptoms to include hematuria, dysuria or frequency. Patient denies saddle paresthesias, lower extremity numbness, tingling, major motor weakness, urinary retention or bowel/bladder incontinence. PMH: PVCs, sciatica, kidney stones Pertinent Past Surgical History: Lithotripsy Family History: Noncontributory Social History: Denies smoking, denies illicit drug use REVIEW OF SYSTEMS: All other systems negative Constitutional: No fever, no chills, appetite change. Eyes: No discharge, vision change ENT: No sore throat, congestion, ear pain. Cardiovascular: No chest pain, no palpitations. Respiratory: No cough, no shortness of breath. Gastrointestinal: No abdominal pain, no vomiting, diarrhea. Genitourinary: No hematuria, dysuria, flank pain, pelvic pain Musculoskeletal: Lumbar back pain No joint swelling, joint pain, myalgias. Skin: No rashes, color change. Neurological: No headache, dizziness, weakness. PHYSICAL EXAM: General Appearance: Patient is uncomfortable appearing however not toxic- appearing. HENT: Normocephalic, atraumatic. Bilateral external ears are normal. Bilateral tympanic membranes are normal with pearly pope reflex. Nares are clear, mucosa is pink. Oropharynx is clear, uvula is midline. There is no tonsillar enlargement or exudate. The dentition is normal. Eyes: PERRLA, no acute vision change, nystagmus, swelling, discharge, pain or photosensitivity. Conjunctiva pink, no pallor or injection Neck: Supple, nontender, no lymphadenopathy, no midline pain, FROM, no meningismus. Respiratory: There are no retractions, lungs are clear to auscultation. Cardiac: Regular rate and rhythm, no murmurs or gallops. Gastrointestinal: Abdomen is soft, nontender, bowel sounds normal, no masses/ hernia, no rigidity, guarding or focal peritoneal findings. Back: No step-off, palpable bony abnormality, edema, erythema or ecchymosis of the cervical, thoracic or lumbar spines. Patient has no midline thoracic or lumbar spinal tenderness to palpation. Patient is tender in the right SI joint and buttock. Limited ROM of lumbar spine due to pain. 5/5 and equal strength of the UEs and LEs bilaterally including shoulder shrug. Pulses: 2+ and equal radial, DP and PT pulses bilaterally. Sensation intact and symmetric to light touch from face, UEs and LEs bilaterally. Straight leg raise positive with raising the left leg. NON-traumatic Back Pain Pathway Low/medium concern for Acute Spinal Emergency (ASE) High Sensitivity Neuro Exam (HSNE) L1: inner thigh sensation- no deficit L2: ADduct thigh (cross legs) - no deficit L3: Extend knee- no deficit L4: Ankle dorsiflexion- no deficit L5: Great toe extension- no deficit S1: Flex knee- no deficit S3-4: bladder/bowel function- no dysfunction Neurological: Alert and oriented x 3, CN 2-12 grossly intact, normal gait no ataxia, DTR's intact, normal sensation and strength Skin: Warm, dry, no rashes, no nodules on palpation. Musculoskeletal: Extremities are symmetrical, full range of motion, no tenderness, deformity, swelling, or erythema. Psychiatric: Patient is oriented X 3, there is no agitation. MEDICAL DECISION MAKING: Patient was seen independently. Secondary supervising physician at time of evaluation was Dr. Mcbride, he did not evaluate this patient however case and plan of care was discussed with him. Diagnosis: Acute on chronic lumbar back pain with radiculopathy. New, requires workup Summary: See Assessment and Plan for summary of ED visit Clinical lab tests: ordered / reviewed. Independent visualization of images, tracing, or specimens: Yes. Decision to obtain medical records or history from someone other than the patient: No Review / Summarize previous medical records: Yes Discussed patient with another provider: Yes, Dr. Meng Patient Progress: Stable, discharged. - History Smoking Status: Never smoked - Objective Vital Signs: Initial Vital Signs Temperature (C) 36.7 C 06/27/18 22:35 Heart Rate 66 06/27/18 22:35 Respiratory Rate 17 06/27/18 22:35 Blood Pressure 149/95 H 06/27/18 22:35 O2 Sat (%) 94 06/27/18 22:35 O2 Delivery Mode Room Air Allergies/Adverse Reactions: DOGS Allergy (Mild, Uncoded 06/27/18 22:35) STUFFY NOSE Home Medications: Medication Instructions Recorded LAMOTRIGINE 04/26/17 LORAZEPAM 04/26/17 Tamsulosin HCl [Flomax] 0.4 mg PO DAILY8 #10 cap 04/23/18 oxyCODONE/APAP 5/325 [Percocet] 1 tab PO Q4-6PRN PRN #11 tab 04/23/18 Laboratory Results: 06/27/18 22:35 Urine Color YELLOW Urine Appearance CLEAR Urine pH 6.0 (5.0-7.5) Ur Specific [place] 1.016 (1.002-1.030) Urine Protein NEGATIVE (NEGATIVE) Urine Ketones NEGATIVE (NEGATIVE) Urine Blood NEGATIVE (NEGATIVE) Urine Nitrate NEGATIVE (NEGATIVE) Urine Bilirubin NEGATIVE (NEGATIVE) Urine Urobilinogen NEGATIVE EU EU (0.2-1.0) Ur Leukocyte Esterase NEGATIVE (NEGATIVE) Urine Glucose NEGATIVE (NEGATIVE) Medications Given: Discontinued Medications Ketorolac Tromethamine (Toradol) 15 mg IVP EDNOW ONE Stop: 06/27/18 23:06 Last Admin: 06/27/18 23:17 Dose: 15 mg Miscellaneous Medication (Icy Hot Lidocaine/Menthol 4%/1% Patch) 1 patch TD EDNOW ONE Stop: 06/27/18 22:50 Last Admin: 06/27/18 22:57 Dose: 1 patch Departure - Departure Disposition: Home, Routine, Self-Care Clinical Impression: Back pain of lumbar region with sciatica Condition: Good Instructions: Lumbar Radiculopathy (ED) Additional Instructions: DISCHARGE INSTRUCTIONS FROM YOUR DOCTOR Thank you for visiting our emergency department today. Please keep in mind that discharge from the emergency department does not mean that there is nothing wrong - it simply means that we have not identified an emergency condition that requires further evaluation or treatment in the hospital. You should always plan to follow up with primary care for re-evaluation of your condition in the next 2-3 days. Most back pain improves quickly with rest and anti-inflammatory medicines. The majority of back pain will improve regardless of treatment within 4-6 weeks. Regardless, I recommend you follow up with primary care for recheck as soon as possible. Additional evaluation as an outpatient may be needed, and further therapeutic modalities such as chiropractic or PT may be helpful. Rest. Avoid lifting greater than 10-15 pounds. Avoid twisting or prolonged sitting. Movement and gentle walking is good for your back. Try to walk for 15-10 minutes on an even surface 3 or 4 times a day as tolerated and increase gentle exercise as your back improves. Apply ice to your low back during acute pain phase, later a heating pad set to a low setting or hot tub may be helpful to help relax muscles. Ibuprofen 600 mg every 6-8 hours with food. Stop for stomach upset. Do not exceed 2400 mg in 24 hours. Avoid these medications for the next 8 hours as you received Toradol today in the ED. Salonpas topical pain patch if you find that this helps you, you may purchase this [id number] at your pharmacy. Schedule a follow-up appointment with your primary care physician in the next 2- 3 days for re-evaluation. You may require further treatment, physical therapy and/or further future testing. Return for increased or unmanageable pain, new injury, new midline back pain, numbness, tingling, weakness of your legs, loss of bowel or bladder control, inability to urinate, burning or pain with urination, blood in the urine, fever , chills, abdominal pain, vomiting, difficulty walking, dizziness, fainting, chest pain, shortness of breath, neck pain, neck stiffness, other site of back pain, calf pain, leg redness or swelling, or for any other new, worsening or worrisome symptoms. People present with illnesses and injuries in different ways, and it is always possible that we have missed something. You may always return for re-evaluation if symptoms worsen or if they are not improving or if you develop new/different symptoms. Again, thank you for choosing our emergency department. We hope that you feel better. Referrals: NONE *PRIMARY CARE P,. [Primary Care Provider] - As per Instructions Bárbara Pizano MD [[facility] Primary Care Provider] - 1-2 days without fail
[2018-06-28 01:08] VITALS: BP 125/70
[2018-06-28] MEDS ORDERED: PATCH REMOVAL 1 EA PATCH TD SCH (21:00)
== END 2018-06-28 01:05 | disposition home or self-care (01) ==
LOC: EDUNIT#
DX: M54.41 Lumbago with sciatica, right side (principal)
CPT/HCPCS: 96374; J1885